=== PATIENT | male | born 1980 | race Caucasian/White ===

== ENCOUNTER 2017-10-16 17:02 | Emergency (ER) | payer OTHER, SELFPAY ==
[2017-10-16 17:08] VITALS: BP 124/77; PULSE 69; RESP 16; TEMP 36.6; O2SAT 98
[2017-10-16 17:18] VITALS: BP 124/77; PULSE 69; RESP 16; TEMP 36.6; O2SAT 98
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
--- NOTE | 2017-10-16 18:01 | PC.NURSE ---
Assumed care at this time. Stable.
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
[2017-10-16] MEDS: IBUPROFEN 400 MG TABLET 800 MG PO (18:59)
--- NOTE | 2017-10-16 19:01 | PC.NURSE ---
Cervical Collar removed by [facility];
[2017-10-16 19:06] VITALS: BP 119/78; PULSE 68; RESP 16; O2SAT 100
== END 2017-10-16 19:48 | disposition home or self-care (01) ==
PROVIDERS: Emergency Provider Nurse Practitioner Family
DX: S43.102A Unspecified dislocation of left acromioclavicular joint, initial encounter (principal); V18.4XXA Pedal cycle driver injured in noncollision transport accident in traffic accident, initial encounter
CPT/HCPCS: 70450; 72125; 73030; 73060; 99283